=== PATIENT | female | born 1970 | race Caucasian/White ===

== ENCOUNTER 2021-11-24 10:39 | Observation (INO) ==
--- NOTE | 2021-11-24 10:49 | DR.GENAD ---
HPI Time Seen Time Seen by Provider: 11/24/21 10:54 Complaint/Symptoms Chief Complaint Doctors Comments: 51 y/o female brought in via EMS for evaluation. Not feeling well over the past 2 days. Started with RLE pain, R sided headache. Was seen in another ER then, no treatment given. Now awoke with difficulty swallowing, spitting up frequently, swelling of the tongue. Denies choking on anything. No report of fever, chills, congestion, cough. + nausea, no vomiting or diarrhea. + h/o HTN, on metoprolol. No GAVIN inhibitors, not on any antibiotics recently. Nurses notes reviewed Nurses Notes Review: Yes Source History Provided: Patient Mode of Arrival Mode of Arrival: EMS PMH PMH Past Medical History: Hypertension and Hyperthyroidism Past Surgical History: Yes Surgical History: Ortho Surgery and Tonsillectomy Family History Family Medical History: Diabetes Mellitus, Coronary Artery Disease and Hypertension Social History Do you use any recreational Drugs:: No ROS Review of Systems Constitutional: Weakness Eyes: No Symptoms Reported ENTM: Drooling Respiratoy: No Symptoms Reported Cardiovascular: No Symptoms Reported Gastrointestinal/Abdominal: Nausea Genitourinary: No Symptoms Reported Neurological: Weakness Musculoskeletal: No Symptoms Reported Integumentary: No Symptoms Reported Hematologic/Lymphatic: No Symptoms Reported Psychiatric: No Symptoms Reported All Other Systems: Reviewed and Negative PE Vital Signs Vitals: Temperature 99.1 F Pulse Rate 87 Respiratory Rate 14 Blood Pressure [Left Arm] 115/55 Blood Pressure 169/91 O2 Sat by Pulse Oximetry 93 General General Appearance: Alert and In Distress Eyes Eye exam: PERRL and EOMI ENT ENT Exam: Normal Oropharynx, Mucous Membranes Moist and Other (+ slight swelling of tongue, + airway patent. ) Neck Neck Exam: Normal Inspection; negative Full ROM or Tenderness Respiratory Respiratory Exam: Normal Lung Sounds Bilat; negative Accessory Muscle Use or Respiratory Distress Cardiovascular Cardiovascular Exam: Regular Rate, Normal Rhythm and Normal Heart Sounds Abdominal Exam Abdominal Exam: Normal Bowel Sounds and Soft; negative Tenderness Extremities Extremities Exam: Normal Inspection and Full ROM; negative Edema Back Back Exam: Normal Inspection Neurologic Neurological Exam: Alert, Oriented X3 and CN II-XII Intact; negative Motor Sensory Deficit Skin Skin Exam: Warm and Dry COURSE Treatment Treatment: 51 y/o female with swelling of her tongue this am, no known cause. Not on an GAVIN inhibitor, ARB. W/u initiated. Pt given IV steroids, famotidine, benadryl. 1530 - doing better. Swelling improving, talking easier. Now with jaw tightness. Given IV ativan, 1 mg. Labs acceptable. Planning to d/c pt on meds. 1635 - Pt more anxious, BP higher, pt worried about being d/c'd to home. Discussed with Dr Howard(covering) will admit for observation. [facility]OR Labs Reviewed Laboratory Results Reviewed?: Yes Result Diagrams: 11/24/21 11:10 11/24/21 11:10 Laboratory: WBC 7.6 X10^3/uL (3.6-10.0) 11/24/21 11:10 RBC 5.13 X10^6/uL (3.5-5.4) 11/24/21 11:10 Hgb 14.8 g/dL (12.0-16.0) 11/24/21 11:10 Hct 44.1 % (36.0-47.0) 11/24/21 11:10 MCV 86.0 fL (80.0-100.0) 11/24/21 11:10 MCH 28.9 pg (27.0-34.0) 11/24/21 11:10 MCHC 33.6 g/dL (33.0-35.0) 11/24/21 11:10 RDW 15.9 % (11.6-16.5) 11/24/21 11:10 Plt Count 370 X10^3/uL (150.0-450.0) 11/24/21 11:10 MPV 8.3 fL (7.4-11.0) 11/24/21 11:10 Neut % (Auto) 67.3 % (42.0-75.0) 11/24/21 11:10 Lymph % (Auto) 20.8 % (21.0-51.0) L 11/24/21 11:10 Wise % (Auto) 7.5 % (0.0-13.0) 11/24/21 11:10 Eos % (Auto) 3.7 % (0.9-2.9) H 11/24/21 11:10 Baso % (Auto) 0.7 % (0.2-1.0) 11/24/21 11:10 Neut # (Auto) 5.1 x10^3/uL (2.2-4.8) H 11/24/21 11:10 Lymph # (Auto) 1.6 X10^3/uL (1.3-2.9) 11/24/21 11:10 Wise # (Auto) 0.6 x10^3/uL (0.3-0.8) 11/24/21 11:10 Eos # (Auto) 0.3 x10^3/uL (0.0-0.2) H 11/24/21 11:10 Baso # (Auto) 0.1 X10^3/uL (0.0-0.1) 11/24/21 11:10 Absolute Nucleated RBC 0.0 /100WBC 11/24/21 11:10 Sodium 139 mmol/L (136-145) 11/24/21 11:10 Corrected Sodium 140 mmol/L (136-145) 11/24/21 11:10 Potassium 4.2 mmol/L (3.5-5.1) 11/24/21 11:10 Chloride 99 mmol/L (98-107) 11/24/21 11:10 Carbon Dioxide 34.1 mmol/L (21-32) H 11/24/21 11:10 BUN 14 mg/dL (7-18) 11/24/21 11:10 Creatinine 1.22 mg/dL (0.55-1.02) H 11/24/21 11:10 Est GFR (MDRD) Af Amer 59 (>60) 11/24/21 11:10 Est GFR (MDRD) Non-Af 49 (>60) L 11/24/21 11:10 Glucose 159 mg/dL (65-99) H 11/24/21 11:10 Calcium 8.4 mg/dL (8.5-10.1) L 11/24/21 11:10 Corrected Calcium TNP 11/24/21 11:10 Total Bilirubin 0.30 mg/dL (0.2-1.0) 11/24/21 11:10 AST 21 Units/L (15-37) 11/24/21 11:10 ALT 27 Units/L (12-78) 11/24/21 11:10 Alkaline Phosphatase 142 Units/L (46-116) H 11/24/21 11:10 Total Protein 7.4 g/dL (6.4-8.2) 11/24/21 11:10 Albumin 3.6 g/dL (3.4-5.0) 11/24/21 11:10 Globulin 3.8 g/dL (2.5-4.5) 11/24/21 11:10 Albumin/Globulin Ratio 0.9 Ratio (1.1-2.1) L 11/24/21 11:10 Lipase 41 Units/L (73-393) L 11/24/21 11:10 Specimen Type Clean catch urine 11/24/21 14:10 Urine Color Yellow (YELLOW) 11/24/21 14:10 Urine Appearance Slightly hazy (CLEAR) 11/24/21 14:10 Urine pH 5.0 (5.0 - 8.0) 11/24/21 14:10 Ur Specific [place] 1.020 (1.000-1.030) 11/24/21 14:10 Urine Protein 1+ (NEGATIVE) 11/24/21 14:10 Urine Glucose (UA) Negative (NEGATIVE) 11/24/21 14:10 Urine Ketones Negative (NEGATIVE) 11/24/21 14:10 Urine Blood 1+ (NEGATIVE) 11/24/21 14:10 Urine Nitrite Negative (NEGATIVE) 11/24/21 14:10 Urine Bilirubin Negative (NEGATIVE) 11/24/21 14:10 Urine Urobilinogen Normal (NORMAL) 11/24/21 14:10 Ur Leukocyte Esterase 2+ (NEGATIVE) 11/24/21 14:10 Urine RBC 3-5 /HPF (0-3) A 11/24/21 14:10 Urine WBC 5-10 /HPF (0-5) A 11/24/21 14:10 Ur Squamous Epith Cells Few /HPF (NEGATIVE) 11/24/21 14:10 Urine Bacteria Trace /HPF (NEGATIVE) 11/24/21 14:10 Ur Culture Indicated? No/not indicated 11/24/21 14:10 Urine Opiates Screen Positive (NEG=<300) A 11/24/21 14:10 Urine Methadone Screen Negative (NEG=<300) 11/24/21 14:10 Ur Barbiturates Screen Negative (NEG=<200) 11/24/21 14:10 Ur Phencyclidine Scrn Negative (NEG=<25) 11/24/21 14:10 Ur Amphetamines Screen Negative (NEG=<1000) 11/24/21 14:10 U Benzodiazepines Scrn Negative (NEG=<200) 11/24/21 14:10 Urine Cocaine Screen Negative (NEG=<300) 11/24/21 14:10 U Marijuana (THC) Screen Positive (NEG=<50) A 11/24/21 14:10 Labs acceptable Opioid Opioid Risk Tool Age (Johnnie box if 16-45): No History of Preadolescent Sexual Abuse: No Total: 0 Total Score Risk Category: Low Risk Copyright: Prem BETH predicting aberrant behaviors Discharge Plan Diagnosis Discharge Problem: Angioedema Discharge Plan Patient Disposition: 09 ADMITTED INPATIENT Condition: Stable
[2021-11-24 10:53] VITALS: BMI 23.3
[2021-11-24] MEDS ORDERED: ZOFRAN INJ 4 MG VIAL IVP ONE (10:54)
[2021-11-24] MEDS ORDERED: DECADRON INJ IVP ONE (10:54)
[2021-11-24] MEDS ORDERED: NS 1,000 ML IV 1,000 ML IV ONE (10:54)
[2021-11-24] MEDS ORDERED: PEPCID 20 MG VIAL IVP ONE (10:56)
[2021-11-24] MEDS ORDERED: BENADRYL INJ 50 MG VIAL IVP ONE (10:56)
[2021-11-24] MEDS ORDERED: NORMODYNE INJ 100 MG VIAL IVP ONE (10:57)
[2021-11-24 11:19] LABS: BASOPHILS # (AUTO) 0.1 X10^3/uL (0.0-0.1); BASOPHILS % (AUTO) 0.7 % (0.2-1.0); EOSINOPHILS # (AUTO) 0.3 x10^3/uL (0.0-0.2); EOSINOPHILS % (AUTO) 3.7 % (0.9-2.9); HEMATOCRIT 44.1 % (36.0-47.0); HEMOGLOBIN 14.8 g/dL (12.0-16.0); LYMPHOCYTES # (AUTO) 1.6 X10^3/uL (1.3-2.9); LYMPHOCYTES % (AUTO) 20.8 % (21.0-51.0); MEAN CORPUSCULAR HEMOGLOBIN 28.9 pg (27.0-34.0); MEAN CORPUSCULAR HGB CONC 33.6 g/dL (33.0-35.0); MEAN PLATELET VOLUME 8.3 fL (7.4-11.0); MONOCYTES # (AUTO) 0.6 x10^3/uL (0.3-0.8); MONOCYTES % (AUTO) 7.5 % (0.0-13.0); NEUTROPHILS # (AUTO) 5.1 x10^3/uL (2.2-4.8); NEUTROPHILS % (AUTO) 67.3 % (42.0-75.0); RED BLOOD COUNT 5.13 X10^6/uL (3.5-5.4); RED CELL DISTRIBUTION WIDTH 15.9 % (11.6-16.5); WHITE BLOOD COUNT 7.6 X10^3/uL (3.6-10.0)
[2021-11-24 11:35] LABS: ALANINE AMINOTRANSFERASE 27 Units/L (12-78); ALBUMIN 3.6 g/dL (3.4-5.0); ALKALINE PHOSPHATASE 142 Units/L (46-116); ASPARTATE AMINO TRANSFERASE 21 Units/L (15-37); BLOOD UREA NITROGEN 14 mg/dL (7-18); CALCIUM 8.4 mg/dL (8.5-10.1); CARBON DIOXIDE 34.1 mmol/L (21-32); CHLORIDE 99 mmol/L (98-107); COR NA(FOR HYPERGLY) 140 mmol/L (136-145); CREATININE 1.22 mg/dL (0.55-1.02); LIPASE 41 Units/L (73-393); SODIUM 139 mmol/L (136-145); TOTAL PROTEIN 7.4 g/dL (6.4-8.2); eGFR NON BLACK RACES 49 (>60)
[2021-11-24] MEDS ORDERED: BENADRYL INJ 50 MG VIAL ONE (11:35)
[2021-11-24] MEDS ORDERED: DECADRON INJ ONE (11:35)
[2021-11-24] MEDS ORDERED: ZOFRAN INJ 4 MG VIAL ONE (11:35)
[2021-11-24] MEDS ORDERED: NS 1,000 ML IV 1,000 ML ONE (11:35)
[2021-11-24] MEDS ORDERED: PEPCID 20 MG VIAL ONE (11:36)
[2021-11-24] MEDS ORDERED: NORMODYNE INJ 20 MG VIAL ONE (11:40)
--- NOTE | 2021-11-24 12:53 | RAD ---
HISTORYDIFFICULTY SWALLOWING HYST, HTNSTUDYCHEST, 1 VIEWCOMPARISONJuly 2020.FINDINGSThe trachea is midline. The cardiac silhouette is unremarkable. The lungs are clear without focal infiltrate or effusion. The bony thorax is unremarkable.IMPRESSIONNo acute cardiopulmonary findings .Electronically signed by: NITHYA RANGEL III (Nov 24, 2021 12:51:44)
[2021-11-24 14:40] LABS: BILIRUBIN,URINE NEGATIVE (NEGATIVE); BLOOD/HEMOGLOBIN,URINE 1+ (NEGATIVE); GLUCOSE, URINE NEGATIVE (NEGATIVE); KETONES,URINE NEGATIVE (NEGATIVE); LEUKOCYTE ESTERASE ,URINE 2+ (NEGATIVE); NITRITES,URINE NEGATIVE (NEGATIVE); PROTEIN,URINE 1+ (NEGATIVE); UROBILINOGEN,URINE NORMAL (NORMAL)
[2021-11-24 14:52] LABS: APPEARANCE,URINE SLIGHTLY HAZY (CLEAR); COLOR,URINE YELLOW (YELLOW)
[2021-11-24 14:53] LABS: BACTERIA,URINE TRACE /HPF (NEGATIVE); SQUAMOUS EPITHELIAL CELL,UR FEW /HPF (NEGATIVE)
[2021-11-24] MEDS ORDERED: ATIVAN 20 MG/10 ML VIAL IVP ONE (15:40)
--- NOTE | 2021-11-24 16:19 | RAD ---
HISTORYDIFFICULTY SWALLOWINGSTUDYSOFT TISSUE NECKCOMPARISONNone availableTECHNIQUESoft tissue neck radiographs, 2 views, AP and lateral projections, 3 imagesFINDINGSNo acute osseous abnormality.Prevertebral soft tissues are normal.Epiglottis and aryepiglottic soft tissues are normal.No radiopaque foreign body identified.Lung apices are clear.Airway in midline without mass effect.Hypopharynx normal caliber.IMPRESSIONNo acute abnormality identified.Electronically signed by: David Hernandez (Nov 24, 2021 16:17:36)
[2021-11-24] MEDS ORDERED: ATIVAN INJ 2 MG VIAL ONE (16:26)
[2021-11-24] MEDS ORDERED: CATAPRES TAB 0.2 MG PO PRN (18:06)
[2021-11-24] MEDS: NORVASC TAB 10 MG PO SCH (18:22)
[2021-11-24] MEDS ORDERED: SOLU-Medrol 40 MG VIAL ONE (19:16)
[2021-11-24] MEDS: ATIVAN TAB 1 MG PO PRN (19:30)
[2021-11-24] MEDS ORDERED: DESYREL PO SCH (21:00)
[2021-11-24] MEDS: LOPRESSOR TAB 50 MG PO SCH (21:07)
[2021-11-24] MEDS: SOLU-Medrol 40 MG VIAL IVP SCH (21:08)
[2021-11-25] MEDS ORDERED: ZOFRAN INJ 4 MG VIAL IVP PRN (04:32)
[2021-11-25] MEDS ORDERED: ZOFRAN INJ 4 MG VIAL ONE (04:34)
[2021-11-25 05:00] LABS: BASOPHILS % (AUTO) 0.3 % (0.2-1.0); LYMPHOCYTES # (AUTO) 1.1 X10^3/uL (1.3-2.9); LYMPHOCYTES % (AUTO) 14.8 % (21.0-51.0); MEAN CORPUSCULAR HGB CONC 33.5 g/dL (33.0-35.0); MEAN CORPUSCULAR VOLUME 86.5 fL (80.0-100.0); MEAN PLATELET VOLUME 8.6 fL (7.4-11.0); MONOCYTES # (AUTO) 0.3 x10^3/uL (0.3-0.8); NEUTROPHILS # (AUTO) 6.2 x10^3/uL (2.2-4.8); NEUTROPHILS % (AUTO) 80.9 % (42.0-75.0); RED BLOOD COUNT 4.16 X10^6/uL (3.5-5.4); RED CELL DISTRIBUTION WIDTH 15.5 % (11.6-16.5); WHITE BLOOD COUNT 7.6 X10^3/uL (3.6-10.0)
[2021-11-25 05:05] LABS: HEMOGLOBIN 12.1 g/dL (12.0-16.0)
[2021-11-25 05:08] LABS: ALANINE AMINOTRANSFERASE 19 Units/L (12-78); ALBUMIN 2.7 g/dL (3.4-5.0); ALKALINE PHOSPHATASE 102 Units/L (46-116); ASPARTATE AMINO TRANSFERASE 14 Units/L (15-37); BLOOD UREA NITROGEN 15 mg/dL (7-18); CALCIUM 7.9 mg/dL (8.5-10.1); CARBON DIOXIDE 32.8 mmol/L (21-32); CHLORIDE 105 mmol/L (98-107); COR CA(FOR HYPOALB) 8.9 mg/dL (8.5-10.1); COR NA(FOR HYPERGLY) 140 mmol/L (136-145); CREATININE 0.66 mg/dL (0.55-1.02); SODIUM 140 mmol/L (136-145); TOTAL PROTEIN 5.7 g/dL (6.4-8.2); eGFR NON BLACK RACES > 60 (>60)
[2021-11-25] MEDS: SOLU-Medrol 40 MG VIAL IVP SCH (05:32)
[2021-11-25] MEDS: LOPRESSOR TAB 50 MG PO SCH (09:11)
[2021-11-25] MEDS: ATIVAN TAB 1 MG PO PRN (09:11)
[2021-11-25] MEDS: NORVASC TAB 10 MG PO SCH (09:11)
[2021-11-25 11:04] VITALS: BP 136/81
== END 2021-11-25 11:30 | disposition home or self-care (01) ==
LOC: ER 10:39 → ICU 10:39
PROVIDERS: ADMIT Obstetrics & Gynecology Obstetrics; ATTEND Obstetrics & Gynecology Obstetrics
DX: F41.8 Other specified anxiety disorders; F41.0 Panic disorder [episodic paroxysmal anxiety]; L50.8 Other urticaria; Z20.822 Contact with and (suspected) exposure to COVID-19; R73.09 Other abnormal glucose; R26.89 Other abnormalities of gait and mobility; R13.11 Dysphagia, oral phase; I10 Essential (primary) hypertension; F12.90 Cannabis use, unspecified, uncomplicated